=== PATIENT | male | born 1985 | race African-American/Black ===

== ENCOUNTER 2023-03-07 17:33 | Emergency (ER) | payer OTHER ==
[~2023-03-07] VITALS: Ht 167.6 cm; Wt 81.6 kg
[2023-03-07 17:33] VITALS: BP_SYST 175
--- NOTE | 2023-03-07 17:37 | NUR ---
Patient triaged and placed in waiting room. VSS and patient appears in no acute distress at this time. Accompanied by SELF, awaiting available bed, and MD notified of need for MSE.
--- NOTE | 2023-03-07 17:50 | NUR ---
PT STATES THAT HE JUST GOT A CALL FROM HIS IN [place] (HE'S A [employer]) AND SHE TOLD HIM SHE TESTED + FOR TRICHOMONIASIS. PT STATES HE WANTS TO GET TESTED. PT STATES NO PAIN OR DRAINAGE.
--- NOTE | 2023-03-07 18:01 | NUR ---
DR PRIDE OUT TO TRIAGE ROOM FOR EVALUATION
[2023-03-07] MEDS ORDERED: METR-154 PO (18:04)
--- NOTE | 2023-03-07 18:20 | NUR ---
Patient given written and verbal discharge instructions and verbalizes understanding. ER MD discussed with patient the results and treatment provided. Patient in stable condition. ID arm band removed. Rx of METRONIDAZOLE given. Patient educated on pain management and to follow up with PMD. Pain Scale 0/10. Opportunity for questions provided and answered. Medication side effect fact sheet provided.
[2023-03-07 18:21] LABS: BILIRUBIN,URINE NEGATIVE (NEGATIVE); BLOOD, URINE 1+ (NEGATIVE); CLARITY/URINE CLEAR (CLEAR); COLOR,URINE YELLOW (YELLOW); GLUCOSE,URINE NEGATIVE (NEGATIVE); KETONES,URINE NEGATIVE (NEGATIVE); LEUKOCYTE ESTERASE ,URINE TRACE (NEGATIVE); NITRITE, URINE NEGATIVE (NEGATIVE); PROTEIN URINE NEGATIVE (NEGATIVE); UROBILINOGEN,URINE 0.2 (0.2-1.0)
[2023-03-07 18:27] LABS: BACTERIA,URINE FEW /HPF (None Seen); RBC,URINE 0-3 /HPF (0-3)
[2023-03-07 18:28] LABS: MUCUS,URINE 1+ /LPF (None Seen)
== END 2023-03-07 18:20 | disposition home or self-care (01) ==
LOC: SED 17:33
DX: A59.9 Trichomoniasis, unspecified (principal); Z79.899 Other long term (current) drug therapy
CPT/HCPCS: 36415; 81000; 87086; 87491; 99283